=== PATIENT | female | born 1985 | race American Indian/Alaskan Native ===

== ENCOUNTER 2021-12-21 02:06 | Emergency (ER) | payer MEDICAID ==
[2021-12-21 02:34] VITALS: BP 148/84
[2021-12-21] MEDS ORDERED: dexAMETHasone 20 MG/5 ML VIAL IM ONE (03:00)
[2021-12-21] MEDS ORDERED: AZITHROMYCIN 250 MG TAB PO ONE (03:00)
[2021-12-21] MEDS ORDERED: KETOROLAC 30 MG/1 ML INJ IM ONE (03:00)
[2021-12-21] MEDS ORDERED: LIDOCAINE VISCOUS 2% 15 ML ORAL LIQD PO ONE (03:00)
--- NOTE | 2021-12-21 03:07 | Emergency Department Report ---
ED General Adult HPI - General Chief complaint: Sore Throat Stated complaint: EAR & THROAT PAIN Source: patient Mode of arrival: Ambulatory Limitations: No Limitations - History of Present Illness Initial comments: Patient is a 36-year-old -[place] female with no past medical history presents to the ED with complaint of acute onset persistent severe sore throat, dysphagia, drooling, bilateral ear pain and lack of appetite for the last 12 hours. Patient states that the pain is constant and persistent and especially worse with swallowing any liquids or solid foods. Patient states that at the colleagues at work have had similar symptoms. Patient denies fever, chills, dizziness, syncope, chest pain or shortness of breath, cough, headache, abdominal pain, nausea and vomiting or diarrhea. MD Complaint: SORE THROAT, Bilateral ear pain -: Sudden, hour(s) (12) Location: mouth Radiation: non-radiation Severity scale (0 -10): 7 Quality: aching, sharp Consistency: constant Improves with: none Worsens with: eating Associated Symptoms: denies other symptoms. denies: confusion, chest pain, cough, diaphoresis, fever/chills, headaches, loss of appetite, rash, seizure, shortness of breath, syncope, weakness Treatments Prior to Arrival: none - Related Data Previous Rx's Medication Instructions Recorded Last Taken Type Azithromycin [Zithromax Z-CONNIE] 250 mg PO DAILY #6 tab 12/21/21 Unknown Rx Ibuprofen [Motrin] 800 mg PO Q8HR PRN #30 tablet 12/21/21 Unknown Rx Lidocaine Viscous 2% 15 ml PO Q6H PRN #120 ml 12/21/21 Unknown Rx Ondansetron [Zofran Odt] 4 mg PO Q6HR PRN #15 tab.rapdis 12/21/21 Unknown Rx predniSONE [Deltasone] 40 mg PO QDAY #10 tab 12/21/21 Unknown Rx Allergies Allergy/AdvReac Type Severity Reaction Status Date / Time hydrocodone [From Lortab] Allergy Shortness Verified 12/21/21 02:28 of Breath Latex, Natural Rubber Allergy Rash Verified 12/21/21 02:28 Penicillins Allergy Vomiting Verified 12/21/21 02:28 ED Review of Systems ROS: Stated complaint: EAR & THROAT PAIN Other details as noted in HPI Constitutional: denies: chills, fever Eyes: denies: eye pain, eye discharge, vision change ENT: ear pain, throat pain (Sore throat) Respiratory: denies: cough, shortness of breath, wheezing Cardiovascular: denies: chest pain, palpitations Endocrine: no symptoms reported Gastrointestinal: denies: abdominal pain, nausea, diarrhea Genitourinary: denies: urgency, dysuria, discharge Musculoskeletal: denies: back pain, joint swelling, arthralgia Skin: denies: rash, lesions Neurological: denies: headache, weakness, paresthesias Psychiatric: denies: anxiety, depression Hematological/Lymphatic: denies: easy bleeding, easy bruising ED Past Medical Hx - Past Medical History Previous Medical History?: No - Surgical History Past Surgical History?: Yes Hx Cholecystectomy: Yes Hx Appendectomy: Yes - Medications Home Medications: Home Medications Medication Instructions Recorded Confirmed Last Taken Type Azithromycin [Zithromax Z-CONNIE] 250 mg PO DAILY #6 tab 12/21/21 Unknown Rx Ibuprofen [Motrin] 800 mg PO Q8HR PRN #30 tablet 12/21/21 Unknown Rx Lidocaine Viscous 2% 15 ml PO Q6H PRN #120 ml 12/21/21 Unknown Rx Ondansetron [Zofran Odt] 4 mg PO Q6HR PRN #15 tab.rapdis 12/21/21 Unknown Rx predniSONE [Deltasone] 40 mg PO QDAY #10 tab 12/21/21 Unknown Rx ED Physical Exam - General Limitations: No Limitations General appearance: alert, in no apparent distress - Head Head exam: Present: atraumatic, normocephalic, normal inspection - Eye Eye exam: Present: normal appearance, PERRL, EOMI Pupils: Present: normal accommodation - ENT ENT exam: Present: normal exam, mucous membranes moist, TM's normal bilaterally, normal external ear exam, other (Mild erythematous oropharynx and tonsils with white exudates; uvula is midline, no sign of peritonsillar abscess) - Neck Neck exam: Present: normal inspection, full ROM, lymphadenopathy (Palpable anterior cervical tenderness) - Respiratory Respiratory exam: Present: normal lung sounds bilaterally. Absent: respiratory distress, wheezes, rales, rhonchi, stridor, chest wall tenderness, accessory muscle use, decreased breath sounds, prolonged expiratory - Cardiovascular Cardiovascular Exam: Present: regular rate, normal rhythm, normal heart sounds. Absent: systolic murmur, diastolic murmur, rubs, gallop - GI/Abdominal GI/Abdominal exam: Present: soft, normal bowel sounds. Absent: distended, tenderness, guarding, hyperactive bowel sounds, hypoactive bowel sounds, organomegaly, mass, bruit - Extremities Exam Extremities exam: Present: normal inspection, full ROM, normal capillary refill. Absent: tenderness - Back Exam Back exam: Present: normal inspection, full ROM. Absent: tenderness, CVA tenderness (R), CVA tenderness (L), muscle spasm, paraspinal tenderness, vertebral tenderness - Neurological Exam Neurological exam: Present: alert, oriented X3, CN II-XII intact, normal gait, reflexes normal - Psychiatric Psychiatric exam: Present: normal affect, normal mood - Skin Skin exam: Present: warm, dry, intact, normal color. Absent: rash ED Course Vital Signs 12/21/21 02:29 Temperature 98.8 F Pulse Rate 84 Respiratory 16 Rate Blood Pressure 148/84 [Right] O2 Sat by Pulse 98 Oximetry ED Medical Decision Making - Medical Decision Making This is a 36-year-old -[place] female with no past medical history presents to the ED with complaint of acute onset persistent severe sore throat, dysphagia, drooling, bilateral ear pain and lack of appetite for the last 12 hours. Patient states that the pain is constant and persistent and especially worse with swallowing any liquids or solid foods. Patient states that at the colleagues at work have had similar symptoms. In the ED, patient is alert and oriented x3 and is not in any distress. Patient is hemodynamically stable. Patient was treated for pain in the ED and on reevaluation, patient's pain is well controlled medication. Patient was discharged home on pain medication and antibiotics and advised to follow-up with her primary care physician in 7 to 10 days for reevaluation. Patient was advised to return to the ED immediately if symptoms get worse. - Differential Diagnosis Strep pharyngitis; tonsillitis; URI; otitis media; mononucleosis Critical care attestation.: If time is entered above; I have spent that time in minutes in the direct care of this critically ill patient, excluding procedure time. ED Disposition Clinical Impression: Acute bacterial pharyngitis, Anterior cervical lymphadenopathy, Acute bacterial tonsillitis Disposition: HOME / SELF CARE / HOMELESS Is pt being admited?: No Does the pt Need Aspirin: No Condition: Stable Instructions: Pharyngitis, [id number], Tonsillitis, [id number] Additional Instructions: Your symptoms are likely due to streptococcal pharyngitis or tonsillitis. Therefore take medication with food, drink plenty of fluids and follow-up with your primary care physician in 7 to 10 days for reevaluation. Return to the ED immediately if symptoms get worse. Prescriptions: predniSONE [Deltasone] 40 mg PO QDAY #10 tab Lidocaine Viscous 2% 15 ml PO Q6H PRN #120 ml PRN Reason: Sore Throat Ibuprofen [Motrin] 800 mg PO Q8HR PRN #30 tablet PRN Reason: Pain , Severe (7-10) Azithromycin [Zithromax Z-CONNIE] 250 mg PO DAILY #6 tab Ondansetron [Zofran Odt] 4 mg PO Q6HR PRN #15 tab.rapdis PRN Reason: Nausea Referrals: MIKHAIL SINCLAIR MD [Staff Physician] - 7-10 days Forms: Work/School Release Form(ED) Time of Disposition: 03:08 Print Language: FRISIAN
== END 2021-12-21 03:30 | disposition home or self-care (01) ==
LOC: ED 02:06
DX: R59.1 Generalized enlarged lymph nodes (principal); J03.80 Acute tonsillitis due to other specified organisms; B96.89 Other specified bacterial agents as the cause of diseases classified elsewhere; Z90.49 Acquired absence of other specified parts of digestive tract; Z88.5 Allergy status to narcotic agent; Z91.040 Latex allergy status; Z88.0 Allergy status to penicillin; Z79.899 Other long term (current) drug therapy
CPT/HCPCS: 96372; 99282; J1100; J1885